=== PATIENT | male | born 1970 | race Caucasian/White ===

== ENCOUNTER 2018-01-29 12:30 | Observation (INO) | payer MEDICAID ==
[2018-01-29] MEDS ORDERED: IPRATROPIUM/ALBUTEROL (0.5MG/3MG) NEB INH ONE (12:33)
--- NOTE | 2018-01-29 12:38 | Emergency Department Record ---
History of Present Illness - General Chief Complaint: Difficulty Breathing Stated Complaint: DIFFICULTY BREATHING Time Seen by Provider: 01/29/18 12:32 Source: Patient Mode of Arrival: Ambulatory Limitations: No limitations - History of Present Illness Initial Comments: 47 yo male presents with increasing cough and shortness of breath for the last several days. The cough is non productive at this time. He is a smoker. He states recently his PCP Dr Jones told him he has early COPD but was not started on any medications. His is a multi-year smoker. He also has diabetes and HTN. No know heart disease. No NVD. No edema. He has some left lower chest pain with cough or laying down. He has wheezing and shortness of breath with walking. No chest pain. MD Complaint: Cough, Shortness of breath -: Days(s) Severity: Moderate Consistency: Intermittent Improves With: Nothing Worsens With: Coughing Context: Other Associated Symptoms: Cough Treatments Prior to Arrival: None - Related Data Home Medications Medication Instructions Recorded Confirmed Last Taken Atorvastatin Calcium 20 mg PO QHS 01/29/18 01/29/18 01/28/18 Hydrocodone/Acetaminophen [[place] 1 each PO ASDIR PRN 01/29/18 01/29/18 01/28/18 5-325 Tablet] Lisinopril/Hydrochlorothiazide 1 each PO DAILY 01/29/18 01/29/18 01/28/18 [Lisinopril-Hctz 20-12.5 mg Tab] Metformin HCl 1,000 mg PO DAILY 01/29/18 01/29/18 01/28/18 Allergies Allergy/AdvReac Type Severity Reaction Status Date / Time No Known Drug Allergies Allergy Verified 01/29/18 12:46 Review of Systems Constitutional: Reports: Malaise, Weakness. Denies: Chills, Fever Eyes: Denies: Eye discharge, Eye pain, Photophobia, Vision change ENT: Denies: Congestion, Dental pain Respiratory: Reports: Cough, Dyspnea, Wheezes. Denies: Hemoptysis Cardiovascular: Reports: Chest pain (with cough or laying down, non exertion related) Endocrine: Reports: Fatigue Gastrointestinal: Denies: Abdominal pain, Diarrhea, Nausea, Vomiting Genitourinary: Denies: Dysuria, Frequency, Hematuria Musculoskeletal: Denies: Arthralgia, Back pain, Myalgia, Neck pain Skin: Denies: Bruising, Change in color, Rash Neurological: Denies: Numbness, Weakness Psychiatric: Denies: Anxiety Hematological/Lymphatic: Denies: Blood Clots, Easy bleeding, Easy bruising Physical Exam - General General Appearance: Alert, Oriented x3, Cooperative, No acute distress Limitations: No limitations - Head Head exam: Normal inspection - Eye Eye exam: Normal appearance. negative: Conjunctival injection, Scleral icterus - ENT ENT exam: Normal exam, Mucous membranes moist, Normal orophraynx Ear exam: Normal external inspection Nasal Exam: Normal inspection Mouth exam: Normal external inspection Teeth exam: Normal inspection Throat exam: Normal inspection - Neck Neck exam: Normal inspection. negative: Lymphadenopathy, Tenderness - Respiratory Respiratory exam: Decreased breath sounds, Prolonged expiratory, Rhonchi, Wheezes. negative: Normal lung sounds bilaterally, Accessory muscle use, Respiratory distress - Cardiovascular Cardiovascular Exam: Regular rate, Normal rhythm, Normal heart sounds - GI/Abdominal GI/Abdominal exam: Soft. negative: Guarding, Rebound, Rigid, Tenderness - Rectal Rectal exam: Deferred - exam: Deferred - Extremities Extremities exam: Normal inspection, Full ROM, Normal capillary refill. negative: Calf tenderness, Pedal edema, Tenderness - Back Back exam: Reports: Full ROM. Denies: CVA tenderness (R), CVA tenderness (L) - Neurological Neurological exam: Alert, Oriented X3 - Psychiatric Psychiatric exam: Normal affect, Normal mood - Skin Skin exam: Dry, Intact, Normal color, Warm Course - Reevaluation(s) Reevaluation #1: 01/29/18 12:37 No prior visits on the EMR 01/29/18 12:48 EKG 1238 sinus tachycardia, rate 116, intervals normal, axis normal, ST normal. No old. 01/29/18 13:33 Room air biox low as 87%. He was placed on 2 LNC 01/29/18 13:34 D-Dimer is negative at 0.29 01/29/18 13:34 The patient was reassessed after the breathing treatment. Still mild wheeze, rhonchi and HR 106. 01/29/18 13:37 The CXR was reviewed. ЮЛИЯ infiltrate. The radiologist read as likely pneumonitis and less likely mass. Recommend follow up CXR to ensure resolution. Given clinical picture more consistent at this time with pneumonia , antibiotics given. 01/29/18 13:50 The Sodium is 127 The Troponin is 0.024 He denies and chest pain at this time Serial troponins will be ordered given it is indeterminate I SW Dr Benavidez. We discussed the history, labs, and CXR The patient will be admitted for pneumonia, IV antibiotics, supportive oxygen, repeat troponins. 01/29/18 14:18 Medical Decision Making - Lab Data Result diagrams: 01/29/18 12:52 01/29/18 12:52 Disposition Disposition: Admit Clinical Impression: Pneumonia, Wheezy, Hyponatremia, Hypoxia Disposition: Still a Patient at [facility] Decision to Admit: Admit from ER Decision to Admit Date: 01/29/18 Decision to Admit Time: 13:51 Condition: (1) Good Time of Disposition: 13:39 Quality - Quality Measures Quality Measures: N/A - Blood Pressure Screening Does Patient Have Any of the Following: Active Dx of HTN Blood Pressure Classification: Hypertensive Reading Systolic Measurement: 170 Diastolic Measurement: 109 Screening for High Blood Pressure: Patient Exclusion, Hx of HTN [G9744]
[2018-01-29] MEDS ORDERED: CEFTRIAXONE 1GM/50ML BAG 1 GM/50 ML BAG IVPB SCH (13:00)
[2018-01-29 13:16] LABS: BASO % 0.1 % (0-6); EOS % 0.5 % (0-6); HEMATOCRIT 34.1 % (42.0-52.0); HEMOGLOBIN 11.4 gm/dl (14.0-18.0); LYMPH % 20.6 % (16-45); MEAN CELL VOLUME 93.9 fl (81-97); MEAN CORPUSCULAR HEMOGLOBIN 31.4 pg (27-33); MEAN CORPUSCULAR HGB CONC 33.4 g/dl (32-36); MONO % 10.8 % (0-9); PLATELET COUNT 164 K/uL (130-400); RED BLOOD COUNT 3.63 M/uL (4.40-5.70); RED CELL DISTRIBUTION WIDTH 13.3 % (11.5-14.5); WHITE BLOOD COUNT W/O DIFF 9.9 K/uL (4.2-12.2)
[2018-01-29] MEDS ORDERED: AZITHROMYCIN 500 MG in 0.9 % SODIUM CHLORIDE 250ML 250 ML IVPB ONE (13:37)
[2018-01-29] MEDS ORDERED: CEFTRIAXONE SODIUM 1 GM in 0.9 % SODIUM CHLORIDE 100ML 100 ML IVPB ONE (13:37)
[2018-01-29 13:39] LABS: BLOOD UREA NITROGEN 8 mg/dL (6-20); CREATININE 0.8 mg/dL (0.7-1.2); EST GLOMERULAR FILTRATION RATE > 60 mL/min
[2018-01-29 13:40] LABS: TOTAL PROTEIN 7.9 g/dL (6.6-8.7)
[2018-01-29 13:42] LABS: GLUCOSE,RANDOM 211 mg/dL (74-109)
[2018-01-29 13:44] LABS: ALB/GLOB RATIO 1.3 (1.1-1.8); ALBUMIN 4.4 g/dL (4.0-5.0); ALKALINE PHOSPHATASE 111 U/L (40-129); ALT/SGPT 20 U/L (<41); AST/SGOT 24 U/L (10.0-50.0)
[2018-01-29] MEDS ORDERED: METHYLPREDNISOLONE PF 125MG/VIAL IVP ONE (13:57)
[2018-01-29] MEDS ORDERED: ASPIRIN 325 MG TABLET PO ONE (14:17)
[2018-01-29] MEDS ORDERED: ALBUTEROL SULFATE (0.083%) 2.5 MG/3 ML NEB INH PRN (14:50)
[2018-01-29] MEDS ORDERED: Non-Formulary MISC (Metformin Hcl [Metformin Hcl] 1,000 MG) PO SCH (14:50)
[2018-01-29] MEDS ORDERED: ACETAMINOPHEN 325 MG TAB PO PRN (14:50)
[2018-01-29] MEDS: 0.9 % SODIUM CHLORIDE 1000ML 1,000 ML IV PRN (15:50)
[2018-01-29] MEDS: IPRATROPIUM/ALBUTEROL (0.5MG/3MG) NEB INH SCH ×3 (16:02→21:56)
[2018-01-29] MEDS ORDERED: PNEUM 23-VAL ADULT IM ONE (20:58)
[2018-01-29] MEDS: ATORVASTATIN 20 MG TABLET PO SCH (21:33)
[2018-01-29] MEDS: CEFTRIAXONE 1GM/50ML BAG 1 GM/50 ML BAG IVPB SCH (21:33)
[2018-01-29] MEDS: METFORMIN 500 MG TABLET PO SCH (21:33)
[2018-01-29] MEDS ORDERED: HUMULIN R 100 UNIT/ML VIAL SQ ONE (22:32)
[2018-01-30] MEDS: 0.9 % SODIUM CHLORIDE 1000ML 1,000 ML IV PRN (06:03)
[2018-01-30] MEDS: IPRATROPIUM/ALBUTEROL (0.5MG/3MG) NEB INH SCH ×5 (06:14→21:21)
[2018-01-30] MEDS: CEFTRIAXONE 1GM/50ML BAG 1 GM/50 ML BAG IVPB SCH ×2 (09:00→21:34)
[2018-01-30] MEDS: DULOXETINE HCL 30 MG CAPSULE.DR PO SCH (09:03)
[2018-01-30] MEDS: METFORMIN 500 MG TABLET PO SCH ×2 (09:03→21:33)
[2018-01-30] MEDS: LISINOPRIL 20 MG TABLET PO SCH (09:03)
[2018-01-30] MEDS: AZITHROMYCIN 500 MG TABLET PO SCH (09:05)
[2018-01-30] MEDS ORDERED: METHYLPREDNISOLONE PF 125MG/VIAL IVP SCH (10:00)
[2018-01-30] MEDS ORDERED: HYDROCHLOROTHIAZIDE 12.5 MG CAPSULE PO SCH (10:00)
[2018-01-30] MEDS ORDERED: 0.9 % SODIUM CHLORIDE 1000ML 1,000 ML IV ONE (10:29)
[2018-01-30] MEDS: NOVOLOG FLEXPEN (INSULIN ASPART) 100 UNITS/ML SQ SCH ×2 (11:47→17:45)
[2018-01-30] MEDS: ENOXAPARIN 40 MG/0.4 ML SYR SC SCH (11:52)
[2018-01-30] MEDS ORDERED: CEFTRIAXONE 1GM/50ML BAG 1 GM/50 ML BAG IVPB SCH (13:00)
[2018-01-30] MEDS ORDERED: AZITHROMYCIN 500 MG in 0.9 % SODIUM CHLORIDE 250ML 250 ML IVPB SCH (14:00)
--- NOTE | 2018-01-30 16:04 | RADIOLOGY REPORT ---
EXAM: CHEST 2 VIEWS HISTORY: COUGH, SHAKES, SWEATING. TECHNIQUE: PA and lateral views. COMPARISON: None. FINDINGS: Heart size is normal. There is a focal opacity about 4 cm in size in the left mid chest on the frontal view, probably located in the posterior aspect of the left upper lobe abutting the superior aspect of the major fissure on the lateral. This probably represents a focus of pneumonitis rather than a discrete mass but short-term follow-up after suitable therapy suggested to be certain this clears and to exclude an underlying mass. Elsewhere, the lungs appear essentially clear. No pleural effusion or pneumothorax evident. Spurring in the spine. IMPRESSION: FOCAL OPACITY LEFT MID LUNG INVOLVING THE POSTERIOR ASPECT OF THE LEFT UPPER LOBE, NOTED ABOVE, PRESUMABLY A RELATIVELY ROUND PNEUMONIA RATHER THAN A DISCRETE MASS. SHORT-TERM FOLLOW-UP AFTER SUITABLE THERAPY IS SUGGESTED. JOB NUMBER: [id number] MTDD
[2018-01-30] MEDS: ATORVASTATIN 20 MG TABLET PO SCH (21:33)
[2018-01-30] MEDS ORDERED: NOVOLOG FLEXPEN (INSULIN ASPART) 100 UNITS/ML SQ ONE (22:05)
[2018-01-31] MEDS: IPRATROPIUM/ALBUTEROL (0.5MG/3MG) NEB INH SCH (06:29)
--- NOTE | 2018-01-31 08:53 | Discharge Note ---
VTE H&P Assessment - Risk for VTE Risk for VTE: Yes Risk Level: Moderate Risk Assessment Date: 01/29/18 Risk Assessment Time: 16:00 VTE Orders Placed or Will Be Placed: Yes Discharge Medications - Discharge Medications Prescriptions: Albuterol Sulfate [Ventolin Hfa] 1 - 2 puff IH .EVERY 4-6 HOURS PRN #1 inhaler PRN Reason: Difficulty In Breathing Azithromycin [Zithromax] 250 mg PO DAILY #6 tab Cephalexin [Keflex] 500 mg PO QID #40 cap Duloxetine HCl [Cymbalta] 60 mg PO DAILY #30 capsule. Metformin HCl [Glucophage Ir] 1,000 mg PO BID #60 tablet Home Medications: Ambulatory Orders Atorvastatin Calcium 20 mg PO QHS 01/29/18 [Last Taken 01/28/18] Lisinopril/Hydrochlorothiazide [Lisinopril-Hctz 20-12.5 mg Tab] 1 each PO DAILY 01/29/18 [Last Taken 01/28/18] Acetaminophen [Tylenol 325Mg] 650 mg PO Q6H PRN tablet 01/31/18 [Last Taken Unknown] Albuterol Sulfate [Ventolin Hfa] 1 - 2 puff IH .EVERY 4-6 HOURS PRN #1 inhaler 01/31/18 [Last Taken Unknown] Azithromycin [Zithromax] 250 mg PO DAILY #6 tab 01/31/18 [Last Taken Unknown] Cephalexin [Keflex] 500 mg PO QID #40 cap 01/31/18 [Last Taken Unknown] Duloxetine HCl [Cymbalta] 60 mg PO DAILY #30 capsule. 01/31/18 [Last Taken Unknown] Metformin HCl [Glucophage Ir] 1,000 mg PO BID #60 tablet 01/31/18 [Last Taken Unknown] Discharge Note - Date Date of Discharge Note: 01/31/18 Condition: (1) Good Additional Instructions: Follow up with Dr. Benavidez on February 04 stop cigs Forms: Patient Portal Access
[2018-01-31] MEDS: METFORMIN 500 MG TABLET PO SCH (08:59)
[2018-01-31] MEDS: AZITHROMYCIN 500 MG TABLET PO SCH (08:59)
[2018-01-31] MEDS: LISINOPRIL 20 MG TABLET PO SCH (08:59)
[2018-01-31] MEDS: DULOXETINE HCL 30 MG CAPSULE.DR PO SCH (08:59)
[2018-01-31] MEDS: CEFTRIAXONE 1GM/50ML BAG 1 GM/50 ML BAG IVPB SCH (09:00)
[2018-01-31] MEDS: NOVOLOG FLEXPEN (INSULIN ASPART) 100 UNITS/ML SQ SCH (09:02)
[2018-01-31] MEDS: ENOXAPARIN 40 MG/0.4 ML SYR SC SCH (10:06)
--- NOTE | 2018-02-01 13:10 | Discharge Summary ---
DATE OF DISCHARGE: 01/31/2018 TIME: 8:41 a.m. ATTENDING PHYSICIAN: Kobi Benavidez DO. DISCHARGE DIAGNOSES: 1. Left upper lobe pneumonia. Will need a followup x-ray in 6 weeks. 2. Chronic obstructive pulmonary disease. 3. Tobacco use disorder. 4. Diabetes mellitus type 2. 5. Hypertension. 6. Hypercholesterolemia. 7. Hyponatremia. Sodium was 127. REASON FOR HOSPITALIZATION: Cough, cold, short of breath. HISTORY OF PRESENT ILLNESS: This 47-year-old male presented to the emergency room with dyspnea, congestion. Was evaluated by Dr. Pate. Admitted to the hospital with diagnoses of pneumonia, hyponatremia, hypoxia, and wheezing. Significant findings: Chest x-ray showing focal opacity, left midlung, involving the posterior aspect of the left upper lobe, as noted. Presumably a relatively round pneumonia, rather than a discrete mass. Short-term followup after suitable therapy is suggested. Therapy provided. Patient was given IV Rocephin and azithromycin. Given breathing treatments, oxygen therapy. His wheezing resolved quickly. He was also given IV Solu-Medrol. He was breathing much better on discharge. Antibiotics were administered throughout of Rocephin 1 g q.12 hours, azithromycin 500 once a day, and his sugar was controlled with subcu insulin regular. He was placed back on the metformin 1000 mg twice a day, which he said he was not taking before he came in to the hospital. He used to see Dr. Jones, but Dr. Jones's office is closed. He is retired. LABORATORY DATA: WBC 9900, hemoglobin 11.4. His glucose was elevated when he came in, 469, and on discharge is 205. His troponin T's were in the indeterminate range, but coming down, 0.018 and 0.013. His sodium was 127. D-dimer was normal at 0.29. BUN 8, creatinine 0.8. HOSPITAL COURSE: Patient is feeling much better. CONDITION AT DISCHARGE: Much improved. DISCHARGE INSTRUCTIONS: Follow up with Dr. Benavidez on 02/04/2018, on , to set up a followup x-ray. Z-Say once a day until gone. Keflex 500 mg 4 times a day for 10 days. Stop the cigarettes. May need to have his diabetic medications increased to add on Glucotrol if his sugar remains high. I asked him to check his sugars twice a day before breakfast and dinnertime and bring the numbers in when he comes in to the office. Patient will need a followup chest x-ray. His EKG showing no acute changes. LEONIE
--- NOTE | 2018-02-01 14:11 | History and Physical Report ---
DATE: 01/29/2018 at 4 p.m. CHIEF COMPLAINT: Dyspnea, cough. HISTORY OF PRESENT ILLNESS: This 47-year-old male states he had developed a cough and shortness of breath over the last 3 days progressively worse. He came into the ER. Pulse ox was 87% on room air. He is a smoker. He drinks about 6 beers per week. The last beer was last night. He has a tremor which he states he has all the time because of benign tremor which runs in his family. He was seen in the emergency department by Dr. Pate and admitted with a diagnosis of left upper lobe pneumonia. Chest x-ray showing an infiltrate. Needs to followed until resolution to make sure he does not have a tumor there. The patient was given IV Rocephin, azithromycin, Solu-Medrol IV 125 in the ER, and a breathing treatment with Duoderm which made him breathe a little bit better. PAST MEDICAL HISTORY: Benign tremor, always shaky, diabetes mellitus, hypertension, hypercholesterolemia, COPD. MEDICATIONS: 1. Metformin 1000 mg daily. 2. Lisinopril/hydrochlorothiazide 20/12.5 one daily. 3. [place]. His last [place] was a month ago. 4. Atorvastatin 20 mg q.h.s. ALLERGIES: No known drug allergies. FAMILY/PSYCHOSOCIAL HISTORY: Smokes cigarettes about 1/2 pack a day. Occasional beer, 6 beers a week. No drug use. Family history unremarkable. REVIEW OF SYSTEMS: HEENT: He does have congestion and a cough. No headache, blurred vision. Cardiovascular: He did have some left chest pain with coughing. Respiratory: Short of breath over the last 3 days. Gastrointestinal: No nausea, vomiting, diarrhea, black stools, or bloody stools. Genitourinary: No dysuria, hematuria, frequency, or burning on urination. Musculoskeletal: No acute pain. He does have some chronic arthritis pain. Reason why he had the [place]. Neurological: No CVA, paralysis, or paresthesias. Endocrine: He does have diabetes mellitus type 2 and is on metformin. No hypothyroidism. Integument: No rash, ulcers, change in moles, or yellow skin. PHYSICAL EXAMINATION: VITALS: Height 5 feet 5 inches, weight 219 pounds. Temperature 97.8, pulse 112, blood pressure 150/89, respiratory rate 18, pulse ox 91% on 2L O2. He was 87% on room air. HEENT: Pupils are equal, round, and reactive to light and accommodation. Extraocular muscles are intact. Throat is clear. Nose is clear. Tympanic membranes are nagy. NECK: Supple. No jugular venous distention. No hepatojugular reflux. No carotid bruits. Thyroid is smooth. CARDIOVASCULAR: Regular rate and rhythm without murmurs, clicks, rubs, or gallops. RESPIRATORY: Breath sounds are equal bilaterally. Some congestion in the left upper lobe. ABDOMEN: Soft, nontender. No hepatosplenomegaly, no masses, no tenderness. Bowel sounds are active. No bruits. He is overweight. EXTREMITIES: No pitting edema. No cyanosis, no clubbing. Full range of motion. Peripheral pulses are good. BREASTS: Normal male breasts. RECTAL: Exam deferred. GENITALIA: Deferred. NEUROLOGIC: Cranial nerves II-XII intact. No gross defects. Sensation normal, strength normal. Deep tendon reflexes equal bilaterally with Babinski negative. MENTAL STATUS: Alert and oriented x3. IMPRESSION: 1. Left upper lobe pneumonia. 2. COPD. 3. Tobacco use. 4. Diabetes mellitus type 2. 5. Hypercholesterolemia. 6. Hypertension. PLAN: IV Rocephin 1 g q.12 h. Azithromycin 500 mg daily. DuoNeb q.4 h. while awake. Albuterol q.2 h. p.r.n. Solu-Medrol 60 mg IV daily. INPATIENT CERTIFICATION: Admit to inpatient care. Based on my medical assessment, after consideration of patient's risk factors, age, comorbidities, and patient's presenting symptoms and acuity, I expect that this patient will remain in the hospital greater than or equal to 2 midnights and that the services needed warrant inpatient care because of hypoxia and pneumonia. Estimated length of stay is 3 days. The patient may reasonably be expected to be discharged or transferred to a hospital within 96 hours after admission to [facility]. I certify that my determination is in accordance with my understanding of Medicare requirements for reasonable and necessary inpatient services. [facility] CENTERCaridad
== END 2018-01-31 10:29 | disposition home or self-care (01) ==
LOC: ER 12:30 → INTOOBSV 14:35 → MEDSURG 14:35
PROVIDERS: ADMIT Emergency Medicine; ATTEND Emergency Medicine
DX: J18.9 Pneumonia, unspecified organism (principal); E87.1 Hypo-osmolality and hyponatremia; J44.9 Chronic obstructive pulmonary disease, unspecified; I10 Essential (primary) hypertension; E11.9 Type 2 diabetes mellitus without complications; Z79.84 Long term (current) use of oral hypoglycemic drugs; E78.00 Pure hypercholesterolemia, unspecified; F17.210 Nicotine dependence, cigarettes, uncomplicated
CPT/HCPCS: 99285 ×2; 96365; 96366; 96375; 96368; 82947 ×2; 85025; 80053; 36416 ×3; 82948 ×3; 84484 ×2; 85379; 71046; 94640 ×4; 94761 ×2; 94760; 93005 ×2; 93010 ×2; 90732; G0378 ×3; J0696 ×3; 99217; 99220; 99223; 99226; 99233; 99239; J0456; J1650; J2930; J7050

== ENCOUNTER 2018-06-24 09:55 | Day surgery (SDC) | payer MEDICAID ==
[2018-06-24] MEDS ORDERED: LIDOCAINE 2% MDV (20MG/ML) 20ML VIAL IV ONE (09:56)
[2018-06-24] MEDS ORDERED: PROPOFOL 10 MG/ML VIAL IV ONE (09:56)
--- NOTE | 2018-06-25 10:20 | Operative Note ---
DATE OF SURGERY: June 24, 2018 OPERATION: COLONOSCOPY with multiple cold snare polypectomies. PREOPERATIVE DIAGNOSIS: Screening. POSTOPERATIVE DIAGNOSIS: Multiple colon polyps. PROCEDURE: After informed consent was obtained from the patient, he was placed in the left lateral decubitus position in the endoscopy suite, sedated and monitored by the department of anesthesia. Digital rectal exam revealed no palpable mass. A well-lubricated FCR610 colonoscope was inserted into the rectum and advanced to the cecum. Preparation quality was fair at best. Numerous areas were rinsed and fluid and stool evacuated. The cecum was unremarkable. The ascending colon revealed a 4 mm sessile polyp removed with a cold snare. The remainder of the ascending colon, transverse colon, and descending colon were unremarkable. There were 3 polyps in the sigmoid colon and 5 polyps in the rectosigmoid colon. Each of these were sessile ranging in size from 3-6 mm, all removed with a cold snare. The polyps were retrieved. No other abnormalities were identified. J-turn views of the anorectum were unremarkable. The endoscope was straightened, the rectal ampulla deflated, and the endoscope was removed. RECOMMENDATIONS: Given the fair prep and number of polyps, I would recommend a repeat exam in 1 year. As always, thank you for allowing me to participate in the healthcare of your patients. CC: ROSE MARIE Apple
== END 2018-06-24 11:25 | disposition home or self-care (01) ==
LOC: HOP 09:55
PROVIDERS: ATTEND Internal Medicine Gastroenterology
DX: Z12.11 Encounter for screening for malignant neoplasm of colon (principal); D12.7 Benign neoplasm of rectosigmoid junction; D12.2 Benign neoplasm of ascending colon; D12.5 Benign neoplasm of sigmoid colon

== ENCOUNTER 2018-09-08 11:36 | Emergency (ER) | payer MEDICAID ==
[2018-09-08] MEDS ORDERED: IPRATROPIUM/ALBUTEROL (0.5MG/3MG) NEB INH ONE (12:24)
--- NOTE | 2018-09-08 12:36 | Emergency Department Record ---
History of Present Illness - General Chief Complaint: Shortness of breath Stated Complaint: COUGHING/SHORTNESS BREATH Time Seen by Provider: 09/08/18 12:29 Source: Patient Mode of Arrival: Ambulatory - History of Present Illness Initial Comments: patient seen by Cristina chavez on Aug 31 and was feeling better and started getting worse after that with cough with yellow sputum and SOB and has two inhaler at home. Patient admits to drinking 2 beers per day. Stopped smoking Jun 2018 smoked 2ppd for 15 years and the the other 20 years one ppd Onset/Timin -: Month(s) Severity: Severe Severity scale (1-10): 8 Quality: Aching Consistency: Constant Improves With: Medication Worsens With: Lying flat Known History Of: Asthma, COPD, Diabetes Associated Symptoms: Nausea/vomiting Treatments Prior to Arrival: None - Related Data Home Oxygen Therapy: No Allergies Allergy/AdvReac Type Severity Reaction Status Date / Time No Known Drug Allergies Allergy Verified 09/08/18 11:53 Travel Screening - Travel/Exposure Within Last 30 Days Have you traveled within the last 30 days?: No - Travel/Exposure Within Last Year Have you traveled outside the [place] in the last year?: No - Travel Symptoms Symptom Screening: None Review of Systems Reviewed: No additional complaints except as noted below Constitutional: Reports: As per HPI. Denies: Chills, Fever, Malaise, Night sweats, Weakness, Weight change Eyes: Reports: As per HPI. Denies: Eye discharge, Eye pain, Photophobia, Vision change ENT: Reports: As per HPI. Denies: Congestion, Dental pain, Ear pain, Epistaxis , Hearing loss, Throat pain Respiratory: Reports: As per HPI, Cough, Dyspnea, Wheezes. Denies: Hemoptysis, Stridor Cardiovascular: Reports: As per HPI. Denies: Arrhythmia, Chest pain, Dyspnea on exertion, Edema, Murmurs, Orthopnea, Palpitations, Paroxysmal nocturnal dyspnea, Rheumatic Fever, Syncope Endocrine: Reports: As per HPI. Denies: Fatigue, Heat or cold intolerance, Polydipsia, Polyuria Gastrointestinal: Reports: As per HPI. Denies: Abdominal pain, Constipation, Diarrhea, Hematemesis, Hematochezia, Melena, Nausea, Vomiting Genitourinary: Reports: As per HPI. Denies: Dysuria, Frequency, Hematuria, Incontinence, Retention, Testicular pain, Testicular mass, Urgency Musculoskeletal: Reports: As per HPI. Denies: Arthralgia, Back pain, Gout, Joint swelling, Myalgia, Neck pain Skin: Reports: As per HPI. Denies: Bruising, Change in color, Change in hair/ nails, Lesions, Pruritus, Rash Neurological: Reports: As per HPI. Denies: Abnormal gait, Confusion, Headache, Numbness, Paresthesias, Seizure, Tingling, Tremors, Vertigo, Weakness Psychiatric: Reports: As per HPI. Denies: Anxiety, Auditory hallucinations, Depression, Homicidal thoughts, Suicidal thoughts, Visual hallucinations Hematological/Lymphatic: Reports: As per HPI. Denies: Anemia, Blood Clots, Easy bleeding, Easy bruising, Swollen glands Past Medical History - SOCIAL HISTORY Smoking Status: Former smoker Alcohol Use: Occasional Drug Use: None - RESPIRATORY Hx Respiratory Disorders: No Hx Bronchitis: Yes (2 months ago) Hx COPD: Yes (doctor has mentioned possibility) Hx Pneumonia: Yes (January 2018) Hx Sleep Apnea: Yes (no machine) - CARDIOVASCULAR Hx Cardio Disorders: Yes Hx Hypertension: Yes Hx Irregular Heartbeat: Yes - NEURO Hx Neuro Disorders: No Hx Dementia: No Hx Dizziness: Yes (?med related) Comment:: benign tremor - GI Hx GI Disorders: Yes Hx Liver Disease: Yes (enlarged) Comment:: gallbladder stones - Hx Genitourinary Disorders: No - ENDOCRINE Hx Endocrine Disorders: Yes Hx Diabetes: Yes (type 2) Hx Thyroid Disease: No Comment:: metformin - MUSCULOSKELETAL Hx Musculoskeletal Disorders: Yes Hx Arthritis: Yes - PSYCH Hx Psych Problems: Yes Hx Anxiety: Yes Hx Depression: Yes Hx Suicide Attempt: No - HEMATOLOGY/ONCOLOGY Hx Hematology/Oncology Disorders: No Family Medical History Any Significant Family History?: Yes Hx Cancer: Father *Cancer Comment: hodgkins disease Hx Diabetes: Grandparents Hx Heart Disease: Father, Mother, Grandparents Hx HTN: Father, Mother, Grandparents Hx Resp Disorders: Mother Physical Exam - General General Appearance: Alert, Oriented x3, Cooperative, No acute distress - Head Head exam: Normal inspection - Eye Eye exam: Normal appearance, PERRL Pupils: Normal accommodation - ENT ENT exam: Normal exam, Mucous membranes moist, Normal external ear exam, Normal orophraynx, TM's normal bilaterally Ear exam: Normal external inspection. negative: External canal tenderness Nasal Exam: Normal inspection. negative: Discharge, Sinus tenderness Mouth exam: Normal external inspection, Tongue normal Teeth exam: Normal inspection. negative: Dental caries Throat exam: Normal inspection. negative: Tonsillar erythema, Tonsillar exudate - Neck Neck exam: Normal inspection, Full ROM. negative: Tenderness - Respiratory Respiratory exam: Normal lung sounds bilaterally, Respiratory distress (mild distress), Wheezes - Cardiovascular Cardiovascular Exam: Regular rate, Normal rhythm, Normal heart sounds - GI/Abdominal GI/Abdominal exam: Soft, Normal bowel sounds. negative: Tenderness - Rectal Rectal exam: Deferred - exam: Deferred - Extremities Extremities exam: Normal inspection, Full ROM, Normal capillary refill. negative: Tenderness - Back Back exam: Reports: Normal inspection, Full ROM. Denies: Muscle spasm, Rash noted, Tenderness - Neurological Neurological exam: Alert, Normal gait, Oriented X3, Reflexes normal - Psychiatric Psychiatric exam: Normal affect, Normal mood - Skin Skin exam: Dry, Intact, Normal color, Warm Course Vital Signs 09/08/18 09/08/18 11:58 12:15 Temperature 99.7 F H Pulse Rate 112 H 104 H Respiratory 20 16 Rate Blood Pressure 147/92 Pulse Ox 94 L - Reevaluation(s) Reevaluation #1: mother is in the room and talked about his lung xray with a mass and patient remembers he never follow up after his last pneumonia in 2017. His mom said probably didn't have gas money 09/08/18 15:15 Reevaluation #2: discussed case with Dr Kelly and will transfer to [facility] for admission for Copd treatment and biopsy of lung 09/08/18 15:27 Medical Decision Making - Data Complexity MDM Data: Labs Ordered and/or Reviewed, X-Ray Ordered and/or Reviewed (chest xray has a mass in the left upper lobe) - Lab Data Result diagrams: 09/08/18 13:00 09/08/18 13:00 Disposition Clinical Impression: Lung mass COPD (chronic obstructive pulmonary disease) Qualifiers: COPD type: COPD with acute exacerbation Qualified Code(s): J44.1 - Chronic obstructive pulmonary disease with (acute) exacerbation Disposition: Acute Care Hospital Transfer Condition: (2) Stable Forms: Patient Portal Access Time of Disposition: 15:17 Quality - Quality Measures Quality Measures: N/A - Blood Pressure Screening Does Patient Have Any of the Following: No Blood Pressure Classification: Hypertensive Reading Systolic Measurement: 147 Diastolic Measurement: 92 Screening for High Blood Pressure: < First Hypertensive BP, F/U Documented > [ G8950] First Hypertensive Follow-up Interventions: Referral to alternative/primary care provider.
[2018-09-08] MEDS ORDERED: ALBUTEROL SULFATE (0.083%) 2.5 MG/3 ML NEB INH ONE (12:38)
[2018-09-08] MEDS ORDERED: METHYLPREDNISOLONE PF 125MG/VIAL IVP ONE (12:38)
[2018-09-08] MEDS ORDERED: 0.9 % SODIUM CHLORIDE 1000ML 1,000 ML IV PRN (12:38)
[2018-09-08] MEDS ORDERED: ASPIRIN 81 MG CHEWABLE TABLET PO ONE (12:40)
[2018-09-08 13:18] LABS: BASO % 0.1 % (0-6); EOS % 0.1 % (0-6); GRAN % 73.9 % (47-80); HEMATOCRIT 35.4 % (42.0-52.0); HEMOGLOBIN 12.3 gm/dl (14.0-18.0); LYMPH % 13.9 % (16-45); MEAN CELL VOLUME 93.4 fl (81-97); MEAN CORPUSCULAR HGB CONC 34.7 g/dl (32-36); MEAN PLATELET VOLUME 9.5 fl (7.4-10.4); PLATELET COUNT 126 K/uL (130-400); RED BLOOD COUNT 3.79 M/uL (4.40-5.70); RED CELL DISTRIBUTION WIDTH 12.9 % (11.5-14.5); WHITE BLOOD COUNT W/O DIFF 13.6 K/uL (4.2-12.2)
[2018-09-08 13:20] LABS: MEAN CORPUSCULAR HEMOGLOBIN 32.4 pg (27-33)
[2018-09-08 13:30] LABS: BLOOD UREA NITROGEN 14 mg/dL (6-20); CREATININE 0.9 mg/dL (0.7-1.2); EST GLOMERULAR FILTRATION RATE > 60 mL/min
[2018-09-08 13:33] LABS: GLUCOSE,RANDOM 198 mg/dL (74-109)
--- NOTE | 2018-09-10 08:13 | RADIOLOGY REPORT ---
EXAM: CHEST, TWO VIEWS HISTORY: COUGHING, SHORTNESS BREATH. TECHNIQUE: Frontal and lateral views of the chest were performed. Comparison: 01/29/18. FINDINGS: The heart size is normal. Interval increase in size of the opacity in the left upper lobe. No additional lesions are appreciated. There is degenerative change of the thoracic spine. IMPRESSION: INTERVAL INCREASE IN SIZE OF THE OPACITY IN THE LEFT UPPER LOBE. CT IS RECOMMENDED FOR BETTER EVALUATION IF NOT ALREADY PERFORMED. [facility]BER: [id number] [facility]
== END 2018-09-08 19:59 | disposition short-term general hospital (02) ==
LOC: ER 11:36
DX: J44.1 Chronic obstructive pulmonary disease with (acute) exacerbation (principal); R91.8 Other nonspecific abnormal finding of lung field; R11.2 Nausea with vomiting, unspecified; R06.02 Shortness of breath; I10 Essential (primary) hypertension; E11.9 Type 2 diabetes mellitus without complications; Z87.891 Personal history of nicotine dependence; Z79.84 Long term (current) use of oral hypoglycemic drugs
CPT/HCPCS: 71046; 80048; 84484; 85025; 93005; 93010; 94640; 96374; 99285; J2930; J7613

== ENCOUNTER 2019-07-01 07:45 | Emergency (ER) | payer MEDICAID ==
--- NOTE | 2019-07-01 08:48 | RADIOLOGY REPORT ---
EXAMINATION: Left Forearm, Two Views EXAM DATE: 07/01/2019 8:42 AM TECHNIQUE: AP and lateral INDICATION: Foreign body, cut on glass COMPARISON: None ENCOUNTER: Initial FINDINGS: There are some overlying gauze at the forearm. No radiopaque foreign body demonstrated. No fracture d eformity. Any potential foreign body equal to gauze density cannot be excluded. IMPRESSION: No radiopaque foreign body demonstrated. Osseous structures unremarkable. Dictated by: Luke Townsend DO on 07/01/2019 8:45 AM. .
--- NOTE | 2019-07-01 09:05 | Emergency Department Record ---
History of Present Illness - General Chief complaint: Extremity Problem Stated complaint: FALL ARM BLEEDING Time Seen by Provider: 07/01/19 08:03 Source: Patient Mode of Arrival: Ambulatory Limitations: No limitations - History of Present Illness Initial comments: pt put arm thru window yesterday and went to urgent care. they glued it. he bumped it again this am and it started bleeding again. pt is on blood thinner MD Complaint: Extremity pain Onset/Timin -: Days(s) Location: Right, Forearm Radiation: None Improves with: Nothing Worsens with: Other Associated Symptoms: Denies other symptoms - Related Data Home Medications Medication Instructions Recorded Confirmed Last Taken Venlafaxine HCl [Effexor] 75 mg PO DAILY 07/01/19 07/01/19 Unknown Previous Rx's Medication Instructions Recorded Cephalexin [Keflex] 500 mg PO BID #10 cap 07/01/19 Allergies Allergy/AdvReac Type Severity Reaction Status Date / Time No Known Drug Allergies Allergy Unverified 02/03/19 08:47 Travel Screening - Travel/Exposure Within Last 30 Days Have you traveled within the last 30 days?: No Review of Systems Reviewed: No additional complaints except as noted below Constitutional: Reports: As per HPI. Denies: Chills, Fever, Malaise, Night sweats, Weakness, Weight change Eyes: Reports: As per HPI. Denies: Eye discharge, Eye pain, Photophobia, Vision change ENT: Reports: As per HPI. Denies: Congestion, Dental pain, Ear pain, Epistaxis, Hearing loss, Throat pain Respiratory: Reports: As per HPI. Denies: Cough, Dyspnea, Hemoptysis, Stridor, Wheezes Cardiovascular: Reports: As per HPI. Denies: Arrhythmia, Chest pain, Dyspnea on exertion, Edema, Murmurs, Orthopnea, Palpitations, Paroxysmal nocturnal dyspnea, Rheumatic Fever, Syncope Endocrine: Reports: As per HPI. Denies: Fatigue, Heat or cold intolerance, Polydipsia, Polyuria Gastrointestinal: Reports: As per HPI. Denies: Abdominal pain, Constipation, Diarrhea, Hematemesis, Hematochezia, Melena, Nausea, Vomiting Genitourinary: Reports: As per HPI. Denies: Dysuria, Frequency, Hematuria, Incontinence, Retention, Testicular pain, Testicular mass, Urgency Musculoskeletal: Reports: As per HPI. Denies: Arthralgia, Back pain, Gout, Joint swelling, Myalgia, Neck pain Skin: Reports: As per HPI. Denies: Bruising, Change in color, Change in hair/nails, Lesions, Pruritus, Rash Neurological: Reports: As per HPI. Denies: Abnormal gait, Confusion, Headache, Numbness, Paresthesias, Seizure, Tingling, Tremors, Vertigo, Weakness Psychiatric: Reports: As per HPI. Denies: Anxiety, Auditory hallucinations, Depression, Homicidal thoughts, Suicidal thoughts, Visual hallucinations Hematological/Lymphatic: Reports: As per HPI. Denies: Anemia, Blood Clots, Easy bleeding, Easy bruising, Swollen glands Past Medical History - SOCIAL HISTORY Smoking Status: Former smoker - RESPIRATORY Hx Respiratory Disorders: No Hx Bronchitis: Yes (2 months ago) Hx COPD: Yes (doctor has mentioned possibility) Hx Pneumonia: Yes (January 2018) Hx Sleep Apnea: Yes (no machine) - CARDIOVASCULAR Hx Cardio Disorders: Yes Hx Hypertension: Yes Hx Irregular Heartbeat: Yes - NEURO Hx Neuro Disorders: No Hx Dementia: No Hx Dizziness: Yes (?med related) Comment:: benign tremor - GI Hx GI Disorders: Yes Hx Liver Disease: Yes (enlarged) Comment:: gallbladder stones - Hx Genitourinary Disorders: No - ENDOCRINE Hx Endocrine Disorders: Yes Hx Diabetes: Yes (type 2) Hx Thyroid Disease: No Comment:: metformin - MUSCULOSKELETAL Hx Musculoskeletal Disorders: Yes Hx Arthritis: Yes - PSYCH Hx Psych Problems: Yes Hx Anxiety: Yes Hx Depression: Yes Hx Suicide Attempt: No - HEMATOLOGY/ONCOLOGY Hx Hematology/Oncology Disorders: No Family Medical History Any Significant Family History?: Yes Hx Cancer: Father *Cancer Comment: hodgkins disease Hx Diabetes: Grandparents Hx Heart Disease: Father, Mother, Grandparents Hx HTN: Father, Mother, Grandparents Hx Resp Disorders: Mother Physical Exam - General General Appearance: Alert, Oriented x3, Cooperative, Mild distress - Head Head exam: Normal inspection - Eye Eye exam: Normal appearance, PERRL, EOMI Pupils: Normal accommodation - ENT ENT exam: Normal exam, Mucous membranes moist, Normal external ear exam, Normal orophraynx, TM's normal bilaterally Ear exam: Normal external inspection. negative: External canal tenderness Nasal Exam: Normal inspection. negative: Discharge, Sinus tenderness Mouth exam: Normal external inspection, Tongue normal Teeth exam: Normal inspection. negative: Dental caries Throat exam: Normal inspection. negative: Tonsillar erythema, Tonsillar exudate - Neck Neck exam: Normal inspection, Full ROM. negative: Tenderness - Respiratory Respiratory exam: Normal lung sounds bilaterally. negative: Respiratory distres s - Cardiovascular Cardiovascular Exam: Regular rate, Normal rhythm, Normal heart sounds - GI/Abdominal GI/Abdominal exam: Soft, Normal bowel sounds. negative: Tenderness - Rectal Rectal exam: Deferred - exam: Deferred - Extremities Extremities exam: Normal inspection, Full ROM, Normal capillary refill. negative: Tenderness - Back Back exam: Reports: Normal inspection, Full ROM. Denies: Muscle spasm, Rash noted, Tenderness - Neurological Neurological exam: Alert, CN II-XII intact, Normal gait, Oriented X3 - Psychiatric Psychiatric exam: Normal affect, Normal mood - Skin Skin exam: Dry, Intact, Normal color, Warm Type of lesion: Laceration Distribution of rash: RUE Course Vital Signs 07/01/19 07:52 Temperature 98.7 F Pulse Rate 93 H Respiratory 20 Rate Blood Pressure 123/82 Pulse Ox 97 - Reevaluation(s) Reevaluation #1: 07/01/19 09:22 xrays neg Reevaluation #2: 07/01/19 09:23 pts wound id 18 hrs old however since it has a small arterial pumper i am going to suture it and give prophylactic abx Disposition Disposition: Discharge Clinical Impression: Laceration of forearm Qualifiers: Encounter type: initial encounter Laterality: right Qualified Code(s): S51.811A - Laceration without foreign body of right forearm, initial encounter Disposition: Home, Self-Care Condition: (1) Good Instructions: Laceration (ED), Care For Your Stitches (ED) Additional Instructions: stitches out in 8-10 days. return sooner if worse. Prescriptions: Cephalexin [Keflex] 500 mg PO BID #10 cap Forms: Patient Portal Access Quality - Quality Measures Quality Measures: N/A - Blood Pressure Screening Does Patient Have Any of the Following: No Blood Pressure Classification: Pre-Hypertensive BP Reading Systolic Measurement: 123 Diastolic Measurement: 82 Screening for High Blood Pressure: < Pre-Hypertensive BP, F/U Documented > [[id number]] Pre-Hypertensive Follow-up Interventions: Follow-up with rescreen every year. Laceration - Other - Time Out Informed consent:: Informed consent obtained Confirmed first & last name, , procedure, correct site?: Yes Start Date:: 07/01/19 Start Time:: 08:50 - Location Location of laceration:: Right Laceration located on:: Forearm Length of laceration:: 1.5 Length of laceration:: cm Full Body: 1 - 1.5cm v shaped lac that has a small pumper and is actively bleeding - Clean and Prep Laceration cleaning method:: Cleansed, Copious Irrigation, Extensive Cleaning Laceration cleaning agent:: Normal Saline - Local Anesthetic Lidocaine used:: 1% with epi Lidocaine dose:: 1 mL EMLA cream used?: No - Medication Medicated for procedure?: No - Procedural Detail Tissue detail:: Torn Foreign body in the wound?: No Undermining was preformed?: No Stent applied?: No [place] applied?: No Retention suture(s) applied?: Yes Skin suture pattern:: Interrupted Suture material/size:: 5-0: Nylon Number of skin sutures:: 3 Neurovascular intact?: Yes - Post Procedural Detail Complications:: Yes (16hrs old w constant bleeding.) Procedure Tolerated by Patient:: Well
== END 2019-07-01 09:58 | disposition home or self-care (01) ==
LOC: ER 07:45
DX: S51.811A Laceration without foreign body of right forearm, initial encounter (principal); W25.XXXA Contact with sharp glass, initial encounter; J44.9 Chronic obstructive pulmonary disease, unspecified; Z87.891 Personal history of nicotine dependence; Z79.01 Long term (current) use of anticoagulants
CPT/HCPCS: 12001; 99284